=== PATIENT | female | born 1980 | race Caucasian/White ===

== ENCOUNTER 2016-07-13 23:14 | Emergency (ER) | payer MEDICARE, MEDICAID ==
[2016-07-13 23:45] VITALS: BP 124/79
[2016-07-14] MEDS ORDERED: Benzocaine 10% Dental Gel 9 GM Tube MUCMEM ONE (00:03)
--- NOTE | 2016-07-14 00:52 | EDM.PDOC ---
ED HPI ENT - General Chief Complaint: ENT Problem Stated Complaint: TOOTH PAIN Time Seen by Provider: 07/13/16 23:38 Source: Reports: Patient History Limitations: Reports: No limitations - History of Present Illness INITIAL COMMENTS - FREE TEXT/NARRATIVE: This patient comes in complaining of pain to her left upper central incisor. She said the dentist put a temporary filling on the tooth and that broke off. She's having severe pain when in the air hits her tooth now. She said the dentist is planning to put a filling in the tooth later. 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: Psychiatric History: Reports: Anxiety, Depression - Infectious Disease History Infectious Disease History: Reports: Chicken pox - Past Surgical History HEENT Surgical History: Reports: Oral surgery Female Surgical History: Reports: section Musculoskeletal Surgical History: Reports: Other (see below) Other Musculoskeletal Surgeries/Procedures:: surgery on finger Social & Family History - Tobacco Use Smoking Status *Q: Current Every Day Smoker Years of Tobacco use: 17 Packs/Tins Daily: 0.5 Second Hand Smoke Exposure: No - Caffeine Use Caffeine Use: Reports: Soda - Alcohol Use Days Per Week of Alcohol Use: 0 - Recreational Drug Use Recreational Drug Use: No Drug Use in Last 12 Months: Yes Recreational Drug Type: Reports: Marijuana/Hashish Recreational Drug Use Frequency: Rarely - Living Situation & Occupation Living situation: Reports: , 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 ED EXAM, ENT - Physical Exam Exam: See Below General Appearance: mild distress Mouth/Throat: Other (There are caries to all of her incisor teeth. The left upper central incisor has caries to the face. There's no obvious abscess. There is some gingivitis.) Course - Vital Signs Last Recorded V/S: Last Vital Signs Temp 36.2 C 07/14/16 00:12 Pulse 98 07/14/16 00:12 Resp 18 07/14/16 00:12 BP 124/79 07/14/16 00:12 Pulse Ox 96 07/14/16 00:12 - Orders/Labs/Meds Meds: Medications Discontinued Medications Generic Name Dose Route Start Last Admin Trade Name Dickson PRN Reason Stop Dose Admin Benzocaine 1 gm 07/14/16 00:03 07/14/16 00:08 Anbesol 10% Dental Gel MUCMEM 07/14/16 00:04 1 dose ONETIME ONE Administration - Re-Assessments/Exams Free Text/Narrative Re-Assessment/Exam: 07/14/16 00:49 I applied some 10% benzocaine gel to the 2 and applied heavily however she claimed it didn't get any relief at all. I offered to do an injection but she said that she goes into panic attacks whenever she sees and needle and that they have to use gas on her. I told her I can give her medications to hold her until morning when she gets in to the dental clinic. A referral will be made the dental clinic for tomorrow morning Departure - Departure Time of Disposition: 00:50 Disposition: Home, Self-Care 01 Condition: fair Clinical Impression: Pain due to dental caries Forms: ED Department Discharge Additional Instructions: Take the pain medication as directed, Narco 5/325 #10 tablets. Take one or 2 tablets every 4 hours as needed for pain. Take penicillin VK 500 mg 4 times day for one week. Followup with his dentist tomorrow morning at 8:15
== END 2016-07-14 01:09 | disposition home or self-care (01) ==
LOC: JP.ED 23:14
DX: K02.9 Dental caries, unspecified (principal); J45.909 Unspecified asthma, uncomplicated; Z88.1 Allergy status to other antibiotic agents; Z79.899 Other long term (current) drug therapy
CPT/HCPCS: 99283; A9270

== ENCOUNTER 2016-08-15 22:43 | Emergency (ER) | payer MEDICARE, MEDICAID ==
[2016-08-15 23:03] VITALS: BP 140/80
--- NOTE | 2016-08-15 23:41 | EDM.PDOC ---
[id number] [id number] WANTS PAIN MEDS Time Seen by Provider: 08/15/16 23:15 Source of Information: Reports: Patient History Limitations: Reports: No limitations - History of Present Illness INITIAL COMMENTS - FREE TEXT/NARRATIVE: 35-year-old female who had a one week ago, discharged 4 days ago he is in for "pain medication". She received 40 oxycodone 4 days ago. She also takes large amounts of gabapentin, chronically uses Ambien as well as alprazolam. She is also worried about peripheral edema. Location: Reports: abdomen Severity: moderate Associated Symptoms: Denies: fever/chills, loss of appetite, malaise, nausea/ vomiting, shortness of breath, weakness incision/ foot Pain Score (Numeric/FACES): 10 - Related Data Allergies Allergy/AdvReac Type Severity Reaction Status Date / Time gentamicin [Gentamicin] Allergy Cannot Verified 08/15/16 23:00 Remember levofloxacin [From Levaquin] Allergy Rash Verified 08/15/16 23:00 Home Meds: Home Meds Albuterol Sulfate [Proair Hfa] 8.5 gm IH BID PRN 09/19/13 [History] Past Medical History HEENT History: Reports: Other (see below) Other HEENT History: Dental carries Respiratory History: Reports: Asthma 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: Psychiatric History: Reports: Anxiety, Depression Endocrine/Metabolic History: Reports: Obesity/BMI 30+ Hematologic History: Reports: Anemia - Infectious Disease History Infectious Disease History: Reports: Chicken pox - Past Surgical History HEENT Surgical History: Reports: Oral surgery Female Surgical History: Reports: section Musculoskeletal Surgical History: Reports: Other (see below) Other Musculoskeletal Surgeries/Procedures:: surgery on finger Social & Family History - Tobacco Use Smoking Status *Q: Current Every Day Smoker Years of Tobacco use: 17 Packs/Tins Daily: 5 Second Hand Smoke Exposure: No - Caffeine Use Caffeine Use: Reports: Soda - Alcohol Use Days Per Week of Alcohol Use: 0 - Recreational Drug Use Recreational Drug Use: No Drug Use in Last 12 Months: Yes Recreational Drug Type: Reports: Marijuana/Hashish Recreational Drug Use Frequency: Rarely - Living Situation & Occupation Living situation: Reports: , 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 Denies: Nausea Musculoskeletal: Reports: other (Lower extremity edema) Neurological: Denies: Headache Psychiatric: Reports: Other (Bipolar) ED EXAM, GENERAL - Physical Exam Exam: See Below Exam Limited By: No limitations General Appearance: alert, no apparent distress Respiratory/Chest: no respiratory distress, lungs clear Cardiovascular: regular rate, rhythm GI/Abdominal: tender (She does have tenderness to palpation over the lower abdomen, but surgical incision looks excellent) Neurological: alert, oriented Psychiatric: normal affect, normal mood Skin Exam: Warm, Dry Course - Vital Signs Last Recorded V/S: Last Vital Signs Temp 98.1 F 08/15/16 23:04 Pulse 80 08/15/16 23:04 Resp 18 08/15/16 23:04 BP 140/80 08/15/16 23:04 Pulse Ox 94 L 08/15/16 23:04 - Re-Assessments/Exams Free Text/Narrative Re-Assessment/Exam: 08/16/16 01:34 I gave the patient 10 Toradol to take 3 times a day instead of ibuprofen, encourage her to increase activity as tolerated and give her 6 hydrocodone to take 2 at bedtime for the next 3 nights. She is going to call her surgeon on Thursday if she feels she needs more pain medication. Departure - Departure Time of Disposition: 23:50 Disposition: Home, Self-Care 01 Condition: good Clinical Impression: Postoperative pain Instructions: Delivery, Care After Referrals: PCP,None [Primary Care Provider] - Forms: ED Department Discharge Care Plan Goals: Stop ibuprofen, today ketorolac 10 mg every 6 hours through the weekend. Continue your other regular medications. Take 2 hydrocodone at bedtime. Recheck next week as scheduled, and call your surgeon on Thursday for more pain medication if needed.
== END 2016-08-15 23:50 | disposition home or self-care (01) ==
LOC: JP.ED 22:43
DX: G89.18 Other acute postprocedural pain (principal); R10.30 Lower abdominal pain, unspecified; J45.909 Unspecified asthma, uncomplicated; F17.210 Nicotine dependence, cigarettes, uncomplicated; E66.9 Obesity, unspecified; Z68.30 Body mass index [BMI] 30.0-30.9, adult; Z88.1 Allergy status to other antibiotic agents; Z98.890 Other specified postprocedural states
CPT/HCPCS: 99282; 99283

== ENCOUNTER 2016-10-22 20:54 | Emergency (ER) | payer MEDICARE, MEDICAID ==
[2016-10-22] MEDS ORDERED: Ondansetron 4 MG/2 ML SDV IVPUSH ONE (21:28)
[2016-10-22] MEDS ORDERED: HYDROmorphone 1 MG/ML Syringe IVPUSH ONE (21:28)
[2016-10-22] MEDS ORDERED: Sodium Chloride 0.9% 1,000 ML IV SCH (21:30)
--- NOTE | 2016-10-22 23:30 | EDM.PDOC ---
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 They could not get her in any sooner she ran out of pain medications today and presented to our ER with ongoing pain and continued vaginal bleeding that has not increased. She has a nondistended course of oral antibiotics she has not had any fevers or chills with this. No dysuria] Review of systems: As per history of present illness and below otherwise all systems reviewed and negative. Past medical history: As per history of present illness and as reviewed below otherwise noncontributory. Surgical history: As per history of present illness and as reviewed below otherwise noncontributory. Social history: No reported history of drug or alcohol abuse. Family history: As per history of present illness and as reviewed below otherwise noncontributory. Physical exam: HEENT: Atraumatic, normocephalic, pupils reactive, negative for conjunctival pallor or scleral icterus, mucous membranes moist, throat clear, neck supple, nontender, trachea midline. Lungs: Clear to auscultation, breath sounds equal bilaterally, chest nontender. Heart: S1S2, regular, negative for clicks, rubs, or JVD. Abdomen: She has some tenderness to palpation in the suprapubic area but her abdomen is nondistended and she has active bowel sounds. Genitourinary: Deferred. Rectal: Deferred. Extremities: Atraumatic, negative for cords or calf pain. Neurovascular unremarkable. Neuro: Awake, alert, oriented. Exam nonfocal. Diagnostics: [CBC shows a white count 12,500 he will was 10.7. Urine drug screen is positive for opiates and benzos and marijuana. Complete metabolic panel was also done] Therapeutics: [She was given IV fluids and pain meds while here is feeling well and better and wants to be discharged as the right is going. We will get records from [place] but to still pending but she needs to go as her right is going] Impression: [Retained placenta needing D&C] Plan: [I'm discharging her with Percocet over 20 and she'll follow up on Thursday for her D&C and continue her oral antibiotics. She will follow-up sooner if she becomes ill and she will try to follow-up in [place]' and [facility] which [facility] getting her D&C.] Definitive disposition and diagnosis as appropriate pending reevaluation and review of above. 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: Psychiatric History: Reports: Anxiety, Depression Endocrine/Metabolic History: Reports: Obesity/BMI 30+ Hematologic History: Reports: Anemia - Infectious Disease History Infectious Disease History: Reports: Chicken Pox - Past Surgical History HEENT Surgical History: Reports: Oral Surgery Female Surgical History: Reports: Section Other Female Surgeries/Procedures: 08/08/16 Musculoskeletal Surgical History: Reports: Other (See Below) Social & Family History - Tobacco Use Smoking Status *Q: Never Smoker Years of Tobacco use: 17 Packs/Tins Daily: 5 Second Hand Smoke Exposure: No - Caffeine Use Caffeine Use: Reports: None - Alcohol Use Days Per Week of Alcohol Use: 0 - Recreational Drug Use Recreational Drug Use: No Drug Use in Last 12 Months: Yes Recreational Drug Type: Reports: Marijuana/Hashish Recreational Drug Use Frequency: Rarely - Living Situation & Occupation Living situation: Reports: , with Family ED ROS GENERAL - Review of Systems Review Of Systems: ROS reveals no pertinent complaints other than HPI. ED EXAM, GI/ABD - Physical Exam Exam: See Below Course - Orders/Labs/Meds Orders: Active Orders 24 hr Category Date Time Status Sodium Chloride 0.9% [Normal Saline] 1,000 ml Med 10/22/16 21:30 Active IV ASDIRECTED Medication Orders Sodium Chloride (Normal Saline) 1,000 mls @ 500 mls/hr IV ASDIRECTED SHELLY Last Admin: 10/22/16 22:13 Dose: 500 mls/hr Labs: Laboratory Tests 10/22/16 10/22/16 10/22/16 Range/Units 21:26 21:26 21:26 WBC 12.5 H (4.5-11.0) K/uL RBC 5.16 (3.30-5.50) M/uL Hgb 10.7 L (12.0-15.0) g/dL Hct 35.7 L (36.0-48.0) % MCV 69 L (80-98) fL MCH 21 L (27-31) pg MCHC 30 L (32-36) % Plt Count 654 H (150-400) K/uL Neut % (Auto) 56 (36-66) % Lymph % (Auto) 36 (24-44) % [place] % (Auto) 6 (2-6) % Eos % (Auto) 2 (2-4) % Baso % (Auto) 1 (0-1) % PT 10.6 (9.5-12.0) sec INR 0.99 (0.80-1.20) Sodium 137 L (140-148) mmol/L Potassium 3.9 (3.6-5.2) mmol/L Chloride 103 (100-108) mmol/L Carbon Dioxide 25 (21-32) mmol/L Anion Gap 12.9 (5.0-14.0) mmol/L BUN 8 (7-18) mg/dL Creatinine 0.7 (0.6-1.0) mg/dL Est Cr Clr Drug Dosing 107.60 mL/min Estimated GFR (MDRD) > 60 (>60) Glucose 115 H (74-106) mg/dL Lactic Acid (0.4-2.0) mmol/L Calcium 8.6 (8.5-10.1) mg/dL Total Bilirubin 0.4 (0.2-1.0) mg/dL AST 12 L (15-37) U/L ALT 20 (12-78) U/L Alkaline Phosphatase 74 (46-116) U/L C-Reactive Protein (0.0-0.3) mg/dL Total Protein 7.0 (6.4-8.2) g/dL Albumin 3.5 (3.4-5.0) g/dL Globulin 3.5 (2.3-3.5) g/dL Albumin/Globulin Ratio 1.0 L (1.2-2.2) Urine Color Urine Appearance Urine pH (4.5-8.0) Ur Specific [place] (1.008-1.030) Urine Protein (NEGATIVE) mg/dL Urine Glucose (UA) (NEGATIVE) mg/dL Urine Ketones (NEGATIVE) mg/dL Urine Occult Blood (NEGATIVE) Urine Nitrite (NEGATIVE) Urine Bilirubin (NEGATIVE) Urine Urobilinogen (NORMAL) mg/dL Ur Leukocyte Esterase (NEGATIVE) Urine RBC (0-5) Urine WBC (0-5) Ur Epithelial Cells Amorphous Sediment Urine Bacteria Urine Mucus Urine Opiates Screen (NEGATIVE) Ur Oxycodone Screen (NEGATIVE) Urine Methadone Screen (NEGATIVE) Ur Propoxyphene Screen (NEGATIVE) Ur Barbiturates Screen (NEGATIVE) Ur Tricyclics Screen (NEGATIVE) Ur Phencyclidine Scrn (NEGATIVE) Ur Amphetamine Screen (NEGATIVE) U Methamphetamines Scrn (NEGATIVE) Urine MDMA Screen (NEGATIVE) U Benzodiazepines Scrn (NEGATIVE) U Cocaine Metab Screen (NEGATIVE) U Marijuana (THC) Screen (NEGATIVE) 10/22/16 10/22/16 10/22/16 Range/Units 21:26 21:26 22:22 WBC (4.5-11.0) K/uL RBC (3.30-5.50) M/uL Hgb (12.0-15.0) g/dL Hct (36.0-48.0) % MCV (80-98) fL MCH (27-31) pg MCHC (32-36) % Plt Count (150-400) K/uL Neut % (Auto) (36-66) % Lymph % (Auto) (24-44) % [place] % (Auto) (2-6) % Eos % (Auto) (2-4) % Baso % (Auto) (0-1) % PT (9.5-12.0) sec INR (0.80-1.20) Sodium (140-148) mmol/L Potassium (3.6-5.2) mmol/L Chloride (100-108) mmol/L Carbon Dioxide (21-32) mmol/L Anion Gap (5.0-14.0) mmol/L BUN (7-18) mg/dL Creatinine (0.6-1.0) mg/dL Est Cr Clr Drug Dosing mL/min Estimated GFR (MDRD) (>60) Glucose (74-106) mg/dL Lactic Acid 1.3 (0.4-2.0) mmol/L Calcium (8.5-10.1) mg/dL Total Bilirubin (0.2-1.0) mg/dL AST (15-37) U/L ALT (12-78) U/L Alkaline Phosphatase (46-116) U/L C-Reactive Protein 0.27 (0.0-0.3) mg/dL Total Protein (6.4-8.2) g/dL Albumin (3.4-5.0) g/dL Globulin (2.3-3.5) g/dL Albumin/Globulin Ratio (1.2-2.2) Urine Color Yellow Urine Appearance Slightly cloudy Urine pH 7.0 (4.5-8.0) Ur Specific [place] 1.010 (1.008-1.030) Urine Protein Negative (NEGATIVE) mg/dL Urine Glucose (UA) Normal (NEGATIVE) mg/dL Urine Ketones Negative (NEGATIVE) mg/dL Urine Occult Blood Large (NEGATIVE) Urine Nitrite Negative (NEGATIVE) Urine Bilirubin Negative (NEGATIVE) Urine Urobilinogen Normal (NORMAL) mg/dL Ur Leukocyte Esterase Negative (NEGATIVE) Urine RBC >100 H (0-5) Urine WBC 0-5 (0-5) Ur Epithelial Cells Few Amorphous Sediment Not seen Urine Bacteria Few Urine Mucus Not seen Urine Opiates Screen (NEGATIVE) Ur Oxycodone Screen (NEGATIVE) Urine Methadone Screen (NEGATIVE) Ur Propoxyphene Screen (NEGATIVE) Ur Barbiturates Screen (NEGATIVE) Ur Tricyclics Screen (NEGATIVE) Ur Phencyclidine Scrn (NEGATIVE) Ur Amphetamine Screen (NEGATIVE) U Methamphetamines Scrn (NEGATIVE) Urine MDMA Screen (NEGATIVE) U Benzodiazepines Scrn (NEGATIVE) U Cocaine Metab Screen (NEGATIVE) U Marijuana (THC) Screen (NEGATIVE) 10/22/16 Range/Units 22:22 WBC (4.5-11.0) K/uL RBC (3.30-5.50) M/uL Hgb (12.0-15.0) g/dL Hct (36.0-48.0) % MCV (80-98) fL MCH (27-31) pg MCHC (32-36) % Plt Count (150-400) K/uL Neut % (Auto) (36-66) % Lymph % (Auto) (24-44) % [place] % (Auto) (2-6) % Eos % (Auto) (2-4) % Baso % (Auto) (0-1) % PT (9.5-12.0) sec INR (0.80-1.20) Sodium (140-148) mmol/L Potassium (3.6-5.2) mmol/L Chloride (100-108) mmol/L Carbon Dioxide (21-32) mmol/L Anion Gap (5.0-14.0) mmol/L BUN (7-18) mg/dL Creatinine (0.6-1.0) mg/dL Est Cr Clr Drug Dosing mL/min Estimated GFR (MDRD) (>60) Glucose (74-106) mg/dL Lactic Acid (0.4-2.0) mmol/L Calcium (8.5-10.1) mg/dL Total Bilirubin (0.2-1.0) mg/dL AST (15-37) U/L ALT (12-78) U/L Alkaline Phosphatase (46-116) U/L C-Reactive Protein (0.0-0.3) mg/dL Total Protein (6.4-8.2) g/dL Albumin (3.4-5.0) g/dL Globulin (2.3-3.5) g/dL Albumin/Globulin Ratio (1.2-2.2) Urine Color Urine Appearance Urine pH (4.5-8.0) Ur Specific [place] (1.008-1.030) Urine Protein (NEGATIVE) mg/dL Urine Glucose (UA) (NEGATIVE) mg/dL Urine Ketones (NEGATIVE) mg/dL Urine Occult Blood (NEGATIVE) Urine Nitrite (NEGATIVE) Urine Bilirubin (NEGATIVE) Urine Urobilinogen (NORMAL) mg/dL Ur Leukocyte Esterase (NEGATIVE) Urine RBC (0-5) Urine WBC (0-5) Ur Epithelial Cells Amorphous Sediment Urine Bacteria Urine Mucus Urine Opiates Screen Positive H (NEGATIVE) Ur Oxycodone Screen Negative (NEGATIVE) Urine Methadone Screen Negative (NEGATIVE) Ur Propoxyphene Screen Negative (NEGATIVE) Ur Barbiturates Screen Negative (NEGATIVE) Ur Tricyclics Screen Negative (NEGATIVE) Ur Phencyclidine Scrn Negative (NEGATIVE) Ur Amphetamine Screen Negative (NEGATIVE) U Methamphetamines Scrn Negative (NEGATIVE) Urine MDMA Screen Negative (NEGATIVE) U Benzodiazepines Scrn Positive H (NEGATIVE) U Cocaine Metab Screen Negative (NEGATIVE) U Marijuana (THC) Screen Positive H (NEGATIVE) Meds: Medications Generic Name Dose Route Start Last Admin Trade Name Freq PRN Reason Stop Dose Admin Sodium Chloride 1,000 mls @ 500 mls/hr 10/22/16 21:30 10/22/16 22:13 Normal Saline IV 500 mls/hr ASDIRECTED SHELLY Administration Discontinued Medications Generic Name Dose Route Start Last Admin Trade Name Freq PRN Reason Stop Dose Admin Hydromorphone HCl 1 mg 10/22/16 21:28 10/22/16 22:13 Dilaudid IVPUSH 10/22/16 21:29 1 mg ONETIME ONE Administration Ondansetron HCl 4 mg 10/22/16 21:28 10/22/16 22:14 Zofran IVPUSH 10/22/16 21:29 4 mg ONETIME ONE Administration Departure - Departure Time of Disposition: 23:28 Disposition: Home, Self-Care 01 Condition: Good Clinical Impression: Retained placenta Qualifiers: Retained placenta detail: portions of placenta Qualified Code(s): O73.1 - Retained portions of placenta and membranes, without hemorrhage - Discharge Information Forms: ED Department Discharge Additional Instructions: Continue your oral antibiotics and your provided with Percocet for pain and if you become sicker between now and Thursday if you can follow-up in [place] since as were your D&C is going to be done that might be in your best interest otherwise were happy to see you here in - My Orders Last 24 Hours: My Active Orders 10/22/16 21:30 Sodium Chloride 0.9% [Normal Saline] 1,000 ml IV ASDIRECTED - Assessment/Plan Last 24 Hours: My Active Orders 10/22/16 21:30 Sodium Chloride 0.9% [Normal Saline] 1,000 ml IV ASDIRECTED
== END 2016-10-22 23:44 | disposition home or self-care (01) ==
LOC: JP.ED 20:54
DX: O73.1 Retained portions of placenta and membranes, without hemorrhage (principal); J45.909 Unspecified asthma, uncomplicated; E66.9 Obesity, unspecified; Z98.890 Other specified postprocedural states; Z88.1 Allergy status to other antibiotic agents; Z86.2 Personal history of diseases of the blood and blood-forming organs and certain disorders involving the immune mechanism
CPT/HCPCS: 36415; 80053; 80305; 81001; 83605; 85025; 85610; 86140; 96361; 96374; 96375; 99283; J1170; J2405; J7040; 99284

== ENCOUNTER 2016-11-15 19:59 | Emergency (ER) | payer MEDICAID, MEDICARE ==
[2016-11-15 20:30] VITALS: BP 133/74
[2016-11-15] MEDS ORDERED: Acetaminophen/oxyCODONE 325-5 MG Tab PO ONE (21:29)
[2016-11-15] MEDS ORDERED: Metoclopramide 10 MG/2 ML SDV IVPUSH ONE (21:29)
[2016-11-15] MEDS ORDERED: Sodium Chloride 0.9% 1,000 ML IV SCH (21:30)
--- NOTE | 2016-11-15 21:51 | EDM.PDOC ---
[id number]: ABNORMAL VAGINAL BLEEDING/PAIN Time Seen by Provider: 11/15/16 21:01 Source of Information: Reports: Patient History Limitations: Reports: No Limitations - History of Present Illness INITIAL COMMENTS - FREE TEXT/NARRATIVE: 35 yo presents to ER 3 months post c-sec complaining of continued vaginal bleeding and pain. Pt delivered at [facility] and per pt has had post delivery complications. She states that has had severe bleeding changing her maxi pad every 2 hours with clots. She has appt in [place] with OB on Thu and states she is in severe pain. Abdomen Pain Score (Numeric/FACES): 8 - Related Data Allergies Allergy/AdvReac Type Severity Reaction Status Date / Time gentamicin [Gentamicin] Allergy Cannot Verified 08/15/16 23:00 Remember levofloxacin [From Levaquin] Allergy Rash Verified 08/15/16 23:00 Home Meds: Home Meds Albuterol Sulfate [Proair Hfa] 8.5 gm IH BID PRN 09/19/13 [History] Gabapentin [Gabapentin] 600 mg PO ASDIRECTED 11/15/16 [History] Zolpidem Tartrate 10 - 20 mg PO BEDTIME PRN 11/15/16 [History] Past Medical History HEENT History: Reports: Other (See Below) Other HEENT History: Dental carries Respiratory History: Reports: Asthma 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: Musculoskeletal History: Reports: None Psychiatric History: Reports: Anxiety, Depression Endocrine/Metabolic History: Reports: Obesity/BMI 30+ Hematologic History: Reports: Anemia - Infectious Disease History Infectious Disease History: Reports: Chicken Pox - Past Surgical History HEENT Surgical History: Reports: Oral Surgery Female Surgical History: Reports: Section Other Female Surgeries/Procedures: 08/08/16 Musculoskeletal Surgical History: Reports: Other (See Below) Social & Family History - Family History Family Medical History: Unobtainable - Tobacco Use Smoking Status *Q: Current Status Unknown Years of Tobacco use: 17 Packs/Tins Daily: 5 Second Hand Smoke Exposure: No - Caffeine Use Caffeine Use: Reports: Coffee - Alcohol Use Days Per Week of Alcohol Use: 0 - Recreational Drug Use Recreational Drug Use: No Drug Use in Last 12 Months: Yes Recreational Drug Type: Reports: Marijuana/Hashish Recreational Drug Use Frequency: Rarely - Living Situation & Occupation Living situation: Reports: , with Family ED ROS GENERAL - Review of Systems Review Of Systems: See Below Constitutional: Denies: Fever, Chills Respiratory: Denies: Shortness of Breath, Wheezing Cardiovascular: Denies: Chest Pain GI/Abdominal: Reports: Abdominal Pain : Reports: Pain. Denies: Dysuria, Frequency ED EXAM, GI/ABD - Physical Exam Exam: See Below General Appearance: Alert, WD/WN, No Apparent Distress Respiratory/Chest: No Respiratory Distress, Lungs Clear, Normal Breath Sounds. No: Crackles, Rhonchi, Wheezing Cardiovascular: Regular Rate, Rhythm, No Murmur GI/Abdominal: Normal Bowel Sounds, Soft, Tenderness (supra pubic, generalized lower) Course - Vital Signs Last Recorded V/S: Last Vital Signs Temp 36.7 C 11/15/16 21:19 Pulse 59 L 11/15/16 21:19 Resp 16 11/15/16 21:19 BP 133/74 11/15/16 21:19 Pulse Ox 100 11/15/16 21:19 - Orders/Labs/Meds Labs: Laboratory Tests 11/15/16 Range/Units 21:40 WBC 13.4 H (4.5-11.0) K/uL RBC 4.98 (3.30-5.50) M/uL Hgb 10.0 L (12.0-15.0) g/dL Hct 33.6 L (36.0-48.0) % MCV 68 L (80-98) fL MCH 20 L (27-31) pg MCHC 30 L (32-36) % Plt Count 583 H (150-400) K/uL Add Manual Diff Yes Neutrophils % (Manual) 56 (36-66) % Lymphocytes % (Manual) 35 (24-44) % Monocytes % (Manual) 6 (2-6) % Eosinophils % (Manual) 2 (2-4) % Basophils % (Manual) 1 (0-1) % Microcytosis Marked H Meds: Medications Discontinued Medications Generic Name Dose Route Start Last Admin Trade Name Freq PRN Reason Stop Dose Admin Sodium Chloride 1,000 mls @ 999 mls/hr 11/15/16 21:30 Normal Saline IV ASDIRECTED SHELLY Metoclopramide HCl 5 mg 11/15/16 21:29 Reglan IVPUSH 11/15/16 21:30 ONETIME ONE Oxycodone/Acetaminophen 1 tab 11/15/16 21:29 Percocet 325-5 Mg PO 11/15/16 21:30 ONETIME ONE - Re-Assessments/Exams Free Text/Narrative Re-Assessment/Exam: 11/15/16 21:52 after telling pt that I had contacted [facility] and they were sending me her medical record she stated that she was really here for more pain medication and just needed to have enough through Wed. She states that she does not have time to stay for evaluation and just needs pain medication. I told her I was not willing to give her pain medication without evaluation. Reviewing previous notes this has been her request for the last 2 ER visits. Review of [place] Query shows multiple opiod fills from multiple providers in the last 4 weeks. Pt stated that she needed to talk with her ride whom was sitting in the parking lot outside then she would make decided if she could stay, She was informed that if she left she was leaving AMA and that there was danger to her health she expressed her understanding. Free Text/Narrative Re-Assessment/Exam: 11/15/16 22:52 pt did not return after she went out to parking lot to talk with brother. pt left AMA Departure - Departure Time of Disposition: 22:53 Disposition: Eloped 07 Clinical Impression: Drug-seeking behavior - Discharge Information Referrals: PCP,None [Primary Care Provider] - Forms: ED Department Discharge
== END 2016-11-15 22:19 | disposition left against medical advice (07) ==
LOC: JP.ED 19:59
DX: Z76.5 Malingerer [conscious simulation] (principal); J45.909 Unspecified asthma, uncomplicated; E66.9 Obesity, unspecified; Z86.2 Personal history of diseases of the blood and blood-forming organs and certain disorders involving the immune mechanism; Z88.1 Allergy status to other antibiotic agents; Z88.8 Allergy status to other drugs, medicaments and biological substances
CPT/HCPCS: 36415; 85025; 96361; 96374; 99282; 99284-25

== ENCOUNTER 2017-02-19 18:39 | Emergency (ER) | payer MEDICARE ==
[2017-02-19 20:22] VITALS: BP 153/104
[2017-02-19] MEDS ORDERED: oxyCODONE 5 MG Tab PO ONE (21:06)
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
== END 2017-02-19 22:02 | disposition home or self-care (01) ==
LOC: JP.ED 18:39
DX: R10.2 Pelvic and perineal pain (principal); F17.210 Nicotine dependence, cigarettes, uncomplicated; Z76.5 Malingerer [conscious simulation]; Z88.8 Allergy status to other drugs, medicaments and biological substances; Z88.1 Allergy status to other antibiotic agents
CPT/HCPCS: 36415; 85025; 99284; A9270; 99283

== ENCOUNTER 2017-02-23 19:00 | Emergency (ER) | payer MEDICARE ==
[2017-02-23 19:48] VITALS: BP 155/91
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
== END 2017-02-23 20:30 | disposition home or self-care (01) ==
LOC: JP.ED 19:00
DX: R10.2 Pelvic and perineal pain (principal); Z76.5 Malingerer [conscious simulation]; F17.210 Nicotine dependence, cigarettes, uncomplicated; F41.9 Anxiety disorder, unspecified; F32.9 Major depressive disorder, single episode, unspecified; Z88.1 Allergy status to other antibiotic agents; Z88.8 Allergy status to other drugs, medicaments and biological substances
CPT/HCPCS: 80305; 81001; 99283; 99284

== ENCOUNTER 2017-11-24 20:16 | Emergency (ER) | payer MEDICARE, MEDICAID ==
[2017-11-24 20:59] VITALS: BP 145/88
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
[2017-11-24] MEDS ORDERED: Ketorolac 60 MG/2 ML SDV IM ONE (21:43)
== END 2017-11-24 22:01 | disposition home or self-care (01) ==
LOC: JP.ED 20:16
DX: K02.9 Dental caries, unspecified (principal); F17.210 Nicotine dependence, cigarettes, uncomplicated; Z88.1 Allergy status to other antibiotic agents
CPT/HCPCS: 96372; 99283; J1885

== ENCOUNTER 2018-10-16 17:24 | Emergency (ER) | payer MEDICARE, MEDICAID ==
[2018-10-16 17:44] VITALS: BP 145/78
[2018-10-16] MEDS ORDERED: Ondansetron 4 MG/2 ML SDV IVPUSH ONE (18:19)
[2018-10-16] MEDS ORDERED: HYDROmorphone 1 MG/ML Syringe IVPUSH ONE ×2 (18:19→19:50)
[2018-10-16] MEDS ORDERED: Sodium Chloride 0.9% 10 ML Syringe FLUSH PRN (18:19)
[2018-10-16] MEDS ORDERED: Sodium Chloride 0.9% 80 ML IV ONE (19:11)
[2018-10-16] MEDS ORDERED: Sodium Chloride 0.9% 10 ML Syringe FLUSH ONE (19:11)
[2018-10-16] MEDS ORDERED: Iopamidol 612 MG/ML 100 ML Bottle IV ONE (19:15)
--- NOTE | 2018-10-16 19:55 | CRLCT ---
Indication: Right lower quadrant abdominal pain. Technique: Multiple contiguous axial images were obtained from the lung bases through the symphysis pubis after the intravenous administration of 100 milliliters Isovue-300. Please note that all CT scans at this facility use dose modulation, iterative reconstruction, and/or weight-based dosing when appropriate to reduce radiation dose to as low as reasonably achievable. Comparison: None Findings: The lung bases are clear. No infiltrate, pleural effusion, or pneumothorax is identified. Heart is normal in size. No pericardial effusion is identified. The liver, gallbladder, pancreas, spleen, adrenals, and kidneys are normal. No intrahepatic biliary ductal dilatation is identified. No hydronephrosis is identified. A renal calculus is identified in the superior pole of the right kidney, which is nonobstructive. In the pelvis, the urinary bladder demonstrates thickening of the wall, which can be seen with cystitis. The uterus is grossly normal. The left ovary demonstrates a follicle. The right ovary is not clearly seen. The small and large bowel are normal in caliber. Sigmoid diverticulosis is identified. There is no evidence of diverticulitis. The appendix is seen and is normal in caliber. No periappendiceal fat stranding or fluid collections are identified. No free air or free fluid is identified within the abdomen or pelvis. The aorta is normal in caliber. No lytic or blastic lesions of the spine are identified. Impression: No evidence of appendicitis. No hydronephrosis or hydroureter. Nonobstructive right renal calculus is identified. Thickening of the wall of the urinary bladder, which can be seen with cystitis. Please note that all CT scans at this facility use dose modulation, iterative reconstruction, and/or weight-based dosing when appropriate to reduce radiation dose to as low as reasonably achievable. Dictated by Sarah Carrera MD @ Oct 16 2018 7:46PM Signed by Dr. Sarah Carrera @ Oct 16 2018 7:54PM
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
== END 2018-10-16 20:46 | disposition home or self-care (01) ==
LOC: JP.ED 17:24
DX: N12 Tubulo-interstitial nephritis, not specified as acute or chronic (principal); J45.909 Unspecified asthma, uncomplicated; F17.210 Nicotine dependence, cigarettes, uncomplicated; Z88.1 Allergy status to other antibiotic agents; Z86.2 Personal history of diseases of the blood and blood-forming organs and certain disorders involving the immune mechanism; Z95.5 Presence of coronary angioplasty implant and graft
CPT/HCPCS: 36415; 74177; 80053; 81001; 81025; 85025; 87086; 96374; 96375; 96376; 99284; J1170; J2405; J7030; Q9967

== ENCOUNTER 2019-04-17 13:41 | Emergency (ER) | payer MEDICARE, MEDICAID ==
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
[2019-04-17 14:22] VITALS: BP 149/96; PULSE 80
== END 2019-04-17 14:27 | disposition home or self-care (01) ==
LOC: JP.ED 13:41
DX: K02.9 Dental caries, unspecified (principal); J45.909 Unspecified asthma, uncomplicated; E66.9 Obesity, unspecified; Z68.27 Body mass index [BMI] 27.0-27.9, adult; Z88.2 Allergy status to sulfonamides; F17.210 Nicotine dependence, cigarettes, uncomplicated
CPT/HCPCS: 99283

== ENCOUNTER 2019-04-26 19:44 | Emergency (ER) | payer MEDICARE, MEDICAID ==
[2019-04-26] MEDS ORDERED: fentaNYL 100 MCG/2 ML SDV IM ONE (21:47)
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
[2019-04-26 21:53] VITALS: BP 127/87; PULSE 95
--- NOTE | 2019-04-26 22:40 | CRLCR ---
INDICATION: Fall, pain TECHNIQUE: Four views right shoulder COMPARISON: None FINDINGS: Bones: Alignment is normal. No fractures or bone lesions. Joint spaces: Unremarkable. Soft tissues: Unremarkable. IMPRESSION: Negative. Dictated by Daniel Bartlett MD @ 04/26/2019 10:39:35 PM Dictated by: Daniel Bartlett MD @ 04/26/2019 22:39:42 (Electronically Signed)
== END 2019-04-26 23:06 | disposition home or self-care (01) ==
LOC: JP.ED 19:44
DX: M25.511 Pain in right shoulder (principal); W01.0XXA Fall on same level from slipping, tripping and stumbling without subsequent striking against object, initial encounter; J45.909 Unspecified asthma, uncomplicated; F17.200 Nicotine dependence, unspecified, uncomplicated; Z88.1 Allergy status to other antibiotic agents; Z79.899 Other long term (current) drug therapy
CPT/HCPCS: 73030; 96372; 99283; J3010

== ENCOUNTER 2020-06-23 22:58 | Emergency (ER) | payer MEDICARE, MEDICAID ==
[2020-06-23 23:08] VITALS: BP 141/90; PULSE 77
[2020-06-23] MEDS ORDERED: Ketorolac 60 MG/2 ML SDV IM ONE (23:34)
[2020-06-23] MEDS ORDERED: cefTRIAXone 1 GM Vial IM ONE (23:34)
[2020-06-23] MEDS ORDERED: Acetaminophen/HYDROcodone 325-5 MG Tab PO ONE (23:34)
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
== END 2020-06-24 00:07 | disposition home or self-care (01) ==
LOC: JP.ED 22:58
DX: H65.92 Unspecified nonsuppurative otitis media, left ear (principal); J45.909 Unspecified asthma, uncomplicated; E66.9 Obesity, unspecified; Z72.0 Tobacco use; Z68.30 Body mass index [BMI] 30.0-30.9, adult; Z88.1 Allergy status to other antibiotic agents; Z79.899 Other long term (current) drug therapy
CPT/HCPCS: 96372; 99282; 99283; A9270; J0696; J1885

== ENCOUNTER 2020-10-15 01:58 | Emergency (ER) | payer MEDICARE, MEDICAID ==
[2020-10-15 02:05] VITALS: BP 163/93; PULSE 86
[2020-10-15] MEDS ORDERED: Sodium Chloride 0.9% 10 ML Syringe FLUSH PRN (02:16)
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
[2020-10-15] MEDS ORDERED: HYDROmorphone 0.5 MG/0.5 ML Syringe IVPUSH ONE (02:38)
[2020-10-15] MEDS ORDERED: Ondansetron 4 MG/2 ML SDV IVPUSH ONE (02:38)
[2020-10-15] MEDS ORDERED: Iopamidol 612 MG/ML 100 ML Bottle IV STA (02:45)
[2020-10-15] MEDS ORDERED: Sodium Chloride 0.9% 75 ML IV STA (02:45)
[2020-10-15] MEDS ORDERED: Sodium Chloride 0.9% 1,000 ML IV SCH (03:00)
--- NOTE | 2020-10-15 04:11 | CRLCT ---
For Patients: As a result of the Century Cures Act, medical imaging exams and procedure reports are released immediately into your electronic medical record. You may view this report before your referring provider. If you have questions, please contact your health care provider. INDICATION: Abdominal pain TECHNIQUE: Axial images were obtained from the diaphragm to the pubic symphysis. Reformats were obtained in the coronal and sagittal plane. IV Contrast: 100 cc Isovue-300 Oral Contrast: None COMPARISON: Abdomen and pelvis CT 10/16/2018 FINDINGS: Lower chest: Unremarkable. Liver: Unremarkable. Normal in size and attenuation. No masses. Gallbladder and bile ducts: Unremarkable. No stones or inflammation. No biliary dilatation. Spleen: Unremarkable. Normal in size without mass. Pancreas: Mild atrophy of the pancreatic tail redemonstrated. Adrenal glands: Unremarkable. No nodules. Kidneys: Unremarkable. No masses, stones, or hydronephrosis. Vasculature: Unremarkable. GI tract: The stomach is unremarkable. No dilated loops of large or small intestine. Appendix unremarkable. Pelvis: Contrast present in the bladder. Uterus anteverted. No adnexal mass. Bones: Unremarkable for age. IMPRESSION: 1. No dilated bowel or localized inflammation. 2. No acute findings to explain the patient`s abdominal pain. Please note that all CT scans at this facility use dose modulation, iterative reconstruction, and/or weight-based dosing when appropriate to reduce radiation dose to as low as reasonably achievable. Dictated by Dwain Grullon MD @ 10/15/2020 4:09:[address] Dwain Grullon @ Oct 15 2020 4:09AM
== END 2020-10-15 04:16 | disposition home or self-care (01) ==
LOC: JP.ED 01:58
DX: K52.9 Noninfective gastroenteritis and colitis, unspecified (principal); K64.4 Residual hemorrhoidal skin tags; K64.8 Other hemorrhoids; J45.909 Unspecified asthma, uncomplicated; E66.9 Obesity, unspecified; Z72.0 Tobacco use; Z79.899 Other long term (current) drug therapy; Z88.1 Allergy status to other antibiotic agents; Z68.27 Body mass index [BMI] 27.0-27.9, adult
CPT/HCPCS: 36415; 74177; 80053; 81001; 82272; 83690; 85025; 86140; 96374; 96375; 99284; J1170; J2405; J7030; Q9967

== ENCOUNTER 2021-05-21 18:21 | Emergency (ER) | payer MEDICARE, MEDICAID ==
[2021-05-21 18:37] VITALS: PULSE 78
[2021-05-21] MEDS ORDERED: Ketorolac 30 MG/ML SDV IM ONE (18:44)
[2021-05-21 20:04] VITALS: BP 121/76
[2021-05-21] MEDS ORDERED: Ondansetron 4 MG/2 ML SDV IVPUSH ONE (20:10)
[2021-05-21] MEDS ORDERED: fentaNYL 100 MCG/2 ML SDV IVPUSH ONE (20:10)
[2021-05-21] MEDS ORDERED: Sodium Chloride 0.9% 10 ML Syringe FLUSH PRN (20:10)
[2021-05-21] MEDS ORDERED: Lactated Ringers 1,000 ML IV SCH (20:15)
== END 2021-05-21 21:35 | disposition home or self-care (01) ==
LOC: JP.ED 18:21
DX: R10.31 Right lower quadrant pain (principal); E66.9 Obesity, unspecified; Z68.27 Body mass index [BMI] 27.0-27.9, adult; Z88.1 Allergy status to other antibiotic agents; Z88.8 Allergy status to other drugs, medicaments and biological substances; Z72.0 Tobacco use
CPT/HCPCS: 36415; 74176; 80053; 81001; 83605; 84145; 85025; 86140; 87040; 96372; 96374; 96375; 99284; J1885; J2405; J3010; J7120